=== PATIENT | male | born 1980 ===

== ENCOUNTER 2017-07-15 11:04 | Emergency (ER) | payer OTHER ==
[2017-07-15 11:26] VITALS: O2SAT 99
--- NOTE | 2017-07-15 13:50 | ED PDOC ---
HPI: CCC, URI, Sore Throat Time Seen by Provider: 07/15/17 11:58 Chief Complaint (Nursing): Flu-like Symptoms Chief Complaint (Provider): URI History Per: Patient Additional Complaint(s): 36 yo male, no PMH, presents to ED with complaints of coughing ;sore throat; tacticle fever since Monday;+congestion; body weakness. sputum from yellow to dark color. Past Medical History Reviewed: Historical Data, Nursing Documentation, Vital Signs Vital Signs: Last Vital Signs Temp 97 F L 07/15/17 11:23 Pulse 53 L 07/15/17 11:23 Resp 18 07/15/17 11:23 BP 125/78 07/15/17 11:23 Pulse Ox 99 07/15/17 13:50 - Medical History PMH: No Chronic Diseases - Surgical History Surgical History: No Surg Hx - Family History Family History: States: No Known Family Hx - Living Arrangements Living Arrangements: With Family - Home Medications Home Medications: Ambulatory Orders Medication Instructions Recorded Ibuprofen [Motrin] 600 mg PO Q6 #20 tab 07/15/17 Promethazine HCl/Codeine 5 ml PO HS #80 ml 07/15/17 [Prometh-Codein 6.25-10 mg/5 ml] - Allergies Allergies/Adverse Reactions: Allergies Allergy/AdvReac Type Severity Reaction Status Date / Time No Known Allergies Allergy Verified 07/15/17 11:26 Review of Systems ROS Statement: Except As Marked, All Systems Reviewed And Found Negative ENT: Positive for: Nose Congestion, Throat Pain Physical Exam - Reviewed Nursing Documentation Reviewed: Yes Vital Signs Reviewed: Yes - Physical Exam Appears: Positive for: Well, Non-toxic, No Acute Distress Head Exam: Positive for: ATRAUMATIC, NORMAL INSPECTION, NORMOCEPHALIC Skin: Positive for: Normal Color, Warm, DRY Eye Exam: Positive for: EOMI, Normal appearance, PERRL ENT: Positive for: Normal ENT Inspection, Pharyngeal Erythema. Negative for: Tonsillar Exudate, Tonsillar Swelling Neck: Positive for: Normal, Painless ROM Cardiovascular/Chest: Positive for: Regular Rate, Rhythm Respiratory: Positive for: CNT, Normal Breath Sounds Gastrointestinal/Abdominal: Positive for: Normal Exam, Bowel Sounds, Soft Back: Positive for: Normal Inspection Extremity: Positive for: Normal ROM Neurologic/Psych: Positive for: Alert, Oriented - ECG O2 Sat by Pulse Oximetry: 99 Medical Decision Making Medical Decision Making: Strep (-) Pt educated on URI symptoms/ viral syndrome supportive care methods discussed Disposition - Clinical Impression Clinical Impression: Upper respiratory infection, Pharyngitis - Patient ED Disposition Is Patient to be Admitted: No - Disposition Disposition: Routine/Home Disposition Time: 15:45 Condition: STABLE Prescriptions: Ibuprofen [Motrin] 600 mg PO Q6 #20 tab Promethazine HCl/Codeine [Prometh-Codein 6.25-10 mg/5 ml] 5 ml PO HS #80 ml Instructions: Upper Respiratory Infection (ED), Pharyngitis (ED) Forms: Withings (Turkmen)
[2017-07-17 09:29] VITALS: BP 122/67; PULSE 68; RESP 14; TEMP 98
== END 2017-07-15 17:07 | disposition home or self-care (01) ==
LOC: H.ER 11:04
DX: J02.9 Acute pharyngitis, unspecified (principal); J06.9 Acute upper respiratory infection, unspecified